=== PATIENT | female | born 1975 | race Caucasian/White ===

== ENCOUNTER 2018-11-13 10:03 | Day surgery (SDC) | payer OTHER ==
[~2018-11-13] VITALS: Ht 167.6 cm; Wt 89.4 kg
[2018-11-13 10:45] VITALS: BP 141/84; PULSE 65; TEMP 97.5
[2018-11-13 13:05] VITALS: BP 114/75; PULSE 58
--- NOTE | 2018-11-13 13:05 | NUR ---
Patient returns to GI [facility] 2 per cart and transfers from cart to recliner with standby assist. IV fluids infusing. Denies pain or nausea. Family in room and allowed to rest. Call light in reach and warm blankets given.
--- NOTE | 2018-11-13 13:15 | NUR ---
Dr. Spivey to talk with the patient. All questions answered.
[2018-11-13 13:20] VITALS: BP 102/64; PULSE 57
--- NOTE | 2018-11-13 13:20 | NUR ---
Eating muffin and drinking juice. Room air sats 100%.
[2018-11-13 13:35] VITALS: BP 106/68; PULSE 67
--- NOTE | 2018-11-13 13:35 | NUR ---
Tolerated muffin and warm coffee. Denies pain or nausea. IV discontinued.
--- NOTE | 2018-11-13 13:55 | NUR ---
Dismissal instructions given and signed and all questions answered. Patient dismissed to home per private vehilce driven by spouse and taken to the front door per wheelchair by RN and assisted into vehicle.
== END 2018-11-13 13:55 | disposition home or self-care (01) ==
LOC: SDCO 10:03
DX: R19.7 Diarrhea, unspecified (principal); R10.11 Right upper quadrant pain; K63.89 Other specified diseases of intestine; Z90.49 Acquired absence of other specified parts of digestive tract; Z85.89 Personal history of malignant neoplasm of other organs and systems; Z90.710 Acquired absence of both cervix and uterus; Z80.0 Family history of malignant neoplasm of digestive organs; Z87.891 Personal history of nicotine dependence
CPT/HCPCS: J2250; J2405; J3010; J7030